=== PATIENT | female | born 1995 | race Two or more races ===

== ENCOUNTER 2022-07-29 13:06 | Inpatient (IN) | payer OTHER ==
[~2022-07-29] VITALS: Ht 157.5 cm; Wt 2.3 kg
[2022-07-29] MEDS ORDERED: PRENATAL CAPLE1 EAC1 PO (13:49)
[2022-07-29] MEDS ORDERED: AMOXICILLIN250 MG PO (13:50)
[2022-07-29] MEDS ORDERED: IRON236 MG PO (13:50)
[2022-08-01] MEDS ORDERED: IBUPROFEN800 MG PO (08:28)
[2022-08-01] MEDS ORDERED: DOCUSATE SODIU100 MG PO (08:29)
== END 2022-08-01 14:45 | disposition home or self-care (01) | DRG 788 ==
LOC: O/R 13:06 → LDR 13:06 → O/R 16:34 → OB/GYN 19:46
PROVIDERS: ADMIT Obstetrics & Gynecology; ATTEND Obstetrics & Gynecology
PROC: 4A1HXCZ Monitoring of Products of Conception, Cardiac Rate, External Approach (ICD-10-PCS; 2022-07-29)
PROC: BY4FZZZ Ultrasonography of Third Trimester, Single Fetus (ICD-10-PCS; 2022-07-29)
PROC: 10D00Z1 Extraction of Products of Conception, Low, Open Approach (ICD-10-PCS; principal; 2022-07-29 17:30)
DX: O75.89 Other specified complications of labor and delivery (principal); O36.8130 Decreased fetal movements, third trimester, not applicable or unspecified; O26.843 Uterine size-date discrepancy, third trimester; Z3A.35 35 weeks gestation of pregnancy; Z37.0 Single live birth; Z20.822 Contact with and (suspected) exposure to COVID-19